=== PATIENT | male | born 1950 | race Caucasian/White ===

== ENCOUNTER 2018-01-28 13:14 | Observation (INO) ==
--- NOTE | 2018-01-28 13:42 | ED ---
HPI General Chief Complaint: Dizziness Stated Complaint: Dizziness Time Seen by Provider: 01/28/18 13:37 History of Present Illness HPI Narrative: Patient presents to the emergency department with dizziness. 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 States that the symptoms are consistent with prior TIA they had in the past. Patient drank grape soda, Coke, had a candy bar, drank water, 8 [place] fries, and had razo thinking that this may be secondary to low blood sugar he went to the [place] after this happened and his Accu-Chek was 55 peer states that he has been told he is a borderline diabetic. He denies headache, vomiting, chest pain, back pain, abdominal pain, but states that he had nausea and shortness of breath and he felt tingling over his entire body. Also advises that he felt unsteady on his feet like he was floating. Related Data Home Medications Medication Instructions Recorded Confirmed atorvastatin 80 mg PO DAILY 01/28/18 01/28/18 buspirone 5 mg PO TID 01/28/18 01/28/18 gabapentin 300 mg PO BID 01/28/18 01/28/18 lansoprazole 15 mg PO DAILY 01/28/18 01/28/18 loratadine 10 mg PO DAILY 01/28/18 01/28/18 mirtazapine 7.5 mg PO QID 01/28/18 01/28/18 mirtazapine 15 mg PO DAILY 01/28/18 01/28/18 sumatriptan succinate 6 mg SUB-Q Q6H PRN 01/28/18 01/28/18 tamsulosin 0.4 mg PO DAILY 01/28/18 01/28/18 Allergies Allergy/AdvReac Type Severity Reaction Status Date / Time ciprofloxacin Allergy Mild N/V Unverified 01/21/17 21:54 meperidine Allergy Mild N/V Unverified 01/21/17 21:54 Review of Systems ROS: all other systems reviewed are negative [facility] Medical History Medical History Depressed (Acute) GERD (gastroesophageal reflux disease) (Acute) Hyperlipemia (Acute) Hypertension (Acute) Migraine (Acute) Social History Social History Substance History: No History of Abuse Smoking Status: Unknown if ever smoked How Often Do You Have a Drink Containing Alcohol: Never Exam Narrative Exam Narrative: GENERAL: No acute distress. SKIN: Focused skin assessment warm/dry. HEAD: Atraumatic. Normocephalic. EYES: Pupils equal and round. No scleral icterus. No injection or drainage. ENT: No nasal bleeding or discharge. Mucous membranes pink and moist. NECK: Trachea midline. No JVD. CARDIOVASCULAR: Regular rate and rhythm. No murmur appreciated. RESPIRATORY: No accessory muscle use. Clear to auscultation. Breath sounds equal bilaterally. GASTROINTESTINAL: Abdomen soft, non-tender, nondistended. Hepatic and splenic margins not palpable. MUSCULOSKELETAL: No obvious deformities. No clubbing. No cyanosis. No edema. NEUROLOGICAL: Awake and alert. No obvious cranial nerve deficits. Motor grossly within normal limits. Normal speech. Normal finger to nose and heel to capps. PSYCHIATRIC: Appropriate mood and affect; insight and judgment normal. Course Initial Documented Vital Signs Temperature 98 F 01/28/18 13:39 Pulse Rate 85 01/28/18 13:39 Respiratory Rate 18 01/28/18 13:39 Blood Pressure 143/86 H 01/28/18 13:39 Pulse Oximetry 96 01/28/18 13:39 Last Documented Vital Signs Temperature 98 F 01/28/18 13:39 Pulse Rate 85 01/28/18 13:39 Respiratory Rate 18 01/28/18 13:39 Blood Pressure 143/86 H 01/28/18 13:39 Pulse Oximetry 96 01/28/18 13:39 Medical Decision Making MDM Narrative Medical decision making narrative: Patient presents to the emergency department with dizziness patient placed on cardiac care unit nurse, continuous pulse ox, and IV access obtained. EKG, chest x-ray, head CT, orthostats, and labs ordered. CXR-mildly compensated cardiomegaly Head CT: wnl cbc, coags-wnl u/a+ protein chem-wnl Wade admit for dizziness (TIA workup) Medical Screen Exam Complete: Yes Emergency Medical Condition: Yes Differential Diagnosis Differential Diagnosis: TIA, CVA, ICH, hypoglycemia, infection Lab Data Result diagrams: 01/28/18 13:48 01/28/18 13:48 Lab Results 01/28/18 01/28/18 01/28/18 Range/Units 13:48 13:48 13:48 WBC 7.9 (4.0-11.0) th/mm3 RBC 5.30 (4.50-5.90) mil/mm3 Hgb 15.6 (13.0-17.0) gm/dL Hct 46.9 (39.0-51.0) % MCV 88.4 (80.0-100.0) fL MCH 29.4 (27.0-34.0) pg MCHC 33.3 (32.0-36.0) % RDW 14.4 (11.6-17.2) % Plt Count 173 (150-450) th/mm3 MPV 9.0 (7.0-11.0) fL Neut % (Auto) 74.4 H (16.0-70.0) % Lymph % (Auto) 19.1 (9.0-44.0) % [place] % (Auto) 5.2 (0.0-8.0) % Eos % (Auto) 0.6 (0.0-4.0) % Baso % (Auto) 0.7 (0.0-2.0) % Neut # (Auto) 5.9 (1.8-7.7) th/mm3 Lymph # (Auto) 1.5 (1.0-4.8) th/mm3 [place] # (Auto) 0.4 (0.0-0.9) th/mm3 Eos # (Auto) 0.1 (0.0-0.4) th/mm3 Baso # (Auto) 0.1 (0.0-0.2) th/mm3 WBC Differential . Differential Comment Auto diff final PT 10.2 (9.8-11.6) sec INR 1.0 Ratio APTT 23.6 L (24.3-30.1) sec Sodium 140 (136-145) meq/L Potassium 3.7 (3.5-5.1) meq/L Chloride 107 (98-107) meq/L Carbon Dioxide 25.0 (21.0-32.0) meq/L Anion Gap 8 (5-15) meq/L BUN 17 (7-18) mg/dL Creatinine 1.26 (0.60-1.30) mg/dL Estimated GFR 57 L (>89) mL/min Random Glucose 91 (74-106) mg/dL Calcium 8.6 (8.5-10.1) mg/dL Magnesium 2.1 (1.5-2.5) mg/dL Total Bilirubin 0.5 (0.2-1.0) mg/dL AST 12 L (15-37) U/L ALT 24 (12-78) U/L Alkaline Phosphatase 59 (45-117) U/L Total Creatine Kinase 85 (39-308) U/L Troponin I Less than 0.02 L (0.02-0.05) ng/mL Total Protein 7.4 (6.4-8.2) g/dL Albumin 3.9 (3.4-5.0) g/dL Urine Color (Yellw/Straw) Urine Clarity (Clear) Urine pH (5.0-8.5) Ur Specific [place] (1.002-1.035) Urine Protein (Neg-Trace) mg/dL Urine Glucose (UA) (Negative) mg/dL Urine Ketones (Negative) mg/dL Urine Occult Blood (Negative) Urine Nitrate (Negative) Urine Bilirubin (Negative) Urine Urobilinogen (Less than 2) mg/dL Ur Leukocyte Esterase (Negative) Urine RBC (0-3) /hpf Urine WBC (0-5) /hpf Urine Mucus (Occasional) /lpf Micro UA Comment Ur Microscopic Review Urine Culture Comments 01/28/18 Range/Units 14:03 WBC (4.0-11.0) th/mm3 RBC (4.50-5.90) mil/mm3 Hgb (13.0-17.0) gm/dL Hct (39.0-51.0) % MCV (80.0-100.0) fL MCH (27.0-34.0) pg MCHC (32.0-36.0) % RDW (11.6-17.2) % Plt Count (150-450) th/mm3 MPV (7.0-11.0) fL Neut % (Auto) (16.0-70.0) % Lymph % (Auto) (9.0-44.0) % [place] % (Auto) (0.0-8.0) % Eos % (Auto) (0.0-4.0) % Baso % (Auto) (0.0-2.0) % Neut # (Auto) (1.8-7.7) th/mm3 Lymph # (Auto) (1.0-4.8) th/mm3 [place] # (Auto) (0.0-0.9) th/mm3 Eos # (Auto) (0.0-0.4) th/mm3 Baso # (Auto) (0.0-0.2) th/mm3 WBC Differential Differential Comment PT (9.8-11.6) sec INR Ratio APTT (24.3-30.1) sec Sodium (136-145) meq/L Potassium (3.5-5.1) meq/L Chloride (98-107) meq/L Carbon Dioxide (21.0-32.0) meq/L Anion Gap (5-15) meq/L BUN (7-18) mg/dL Creatinine (0.60-1.30) mg/dL Estimated GFR (>89) mL/min Random Glucose (74-106) mg/dL Calcium (8.5-10.1) mg/dL Magnesium (1.5-2.5) mg/dL Total Bilirubin (0.2-1.0) mg/dL AST (15-37) U/L ALT (12-78) U/L Alkaline Phosphatase (45-117) U/L Total Creatine Kinase (39-308) U/L Troponin I (0.02-0.05) ng/mL Total Protein (6.4-8.2) g/dL Albumin (3.4-5.0) g/dL Urine Color Yellow (Yellw/Straw) Urine Clarity Clear (Clear) Urine pH 5.0 (5.0-8.5) Ur Specific [place] 1.014 (1.002-1.035) Urine Protein 30 H (Neg-Trace) mg/dL Urine Glucose (UA) 50 (Negative) mg/dL Urine Ketones Negative (Negative) mg/dL Urine Occult Blood Negative (Negative) Urine Nitrate Negative (Negative) Urine Bilirubin Negative (Negative) Urine Urobilinogen Less than 2 (Less than 2) mg/dL Ur Leukocyte Esterase Negative (Negative) Urine RBC Less than 1 (0-3) /hpf Urine WBC 1 (0-5) /hpf Urine Mucus Few H (Occasional) /lpf Micro UA Comment Culture not ind Ur Microscopic Review Not Reportable Urine Culture Comments Culture not ind Imaging Data Radiologist's impression: Chest X-Ray 01/28/18 13:37 CONCLUSION: Mild compensated cardiomegaly Head CT 01/28/18 13:37 CONCLUSION: 1. Negative for acute process . ECG Data Attestation: I personally reviewed and interpreted this ECG as follows: (Rate approximately 70, left axis deviation, sinus rhythm, normal intervals, QTC 395, T-wave inversion in lead III and V1, slight YISEL in avL and I) Discharge Plan Discharge Disposition Patient Disposition: 30 Still Patient Discharge Condition Condition: Stable Discharge Details Diagnosis: Dizziness Physicians Team ED Provider: Jossie Greenfield Primary Care Provider: [facility] /Orders / Referrals /Forms Prescriptions: No Action buspirone 5 mg Tablet 5 mg PO TID RF: 0 atorvastatin 80 mg Tablet 80 mg PO DAILY RF: 0 sumatriptan succinate 6 mg/0.5 mL Cartridge 6 mg Sub-Q Q6H PRN (Reason: Migraine Headache) RF: 0 lansoprazole 15 mg Capsule,Delayed Release(Dr/Ec) 15 mg PO DAILY RF: 0 gabapentin 300 mg Capsule 300 mg PO BID RF: 0 mirtazapine 15 mg Tablet 7.5 mg PO QID RF: 0 mirtazapine 15 mg Tablet,Disintegrating 15 mg PO DAILY RF: 0 loratadine 10 mg Tablet 10 mg PO DAILY RF: 0 tamsulosin 0.4 mg PO DAILY RF: 0 Status ED Status: Admitted Observation Patient
--- NOTE | 2018-01-28 14:00 | XR ---
EXAM DATE: 01/28/2018 1:49 PM EDT AGE/SEX: 67 years / Male INDICATIONS: Chest pain and dizziness. CLINICAL DATA: This is the patient's initial encounter. Patient reports that signs and symptoms have been present for 1 day and indicates a pain score of 2/10. MEDICAL/SURGICAL HISTORY: None. . TURP. COMPARISON: No prior exams available for comparison. FINDINGS: The heart is minimally enlarged. The pulmonary vascular is normal. There is no infiltrate or failure. There is no pleural effusion. The portion of the bony skeleton visualized is unremarkable. CONCLUSION: Mild compensated cardiomegaly Electronically signed by: Rolando Matos MD 01/28/2018 1:59 PM EDT
[2018-01-28 14:27] LABS: Baso # (Auto) 0.1 th/mm3 (0.0-0.2); Baso % (Auto) 0.7 % (0.0-2.0); Eos # (Auto) 0.1 th/mm3 (0.0-0.4); Eos % (Auto) 0.6 % (0.0-4.0); Hematocrit 46.9 % (39.0-51.0); Hemoglobin 15.6 gm/dL (13.0-17.0); Lymph # (Auto) 1.5 th/mm3 (1.0-4.8); Lymph % (Auto) 19.1 % (9.0-44.0); Mean Corpuscular HGB Conc 33.3 % (32.0-36.0); Mean Corpuscular Hemoglobin 29.4 pg (27.0-34.0); Mean Corpuscular Volume 88.4 fL (80.0-100.0); Mono # (Auto) 0.4 th/mm3 (0.0-0.9); Mono % (Auto) 5.2 % (0.0-8.0); Neut # (Auto) 5.9 th/mm3 (1.8-7.7); Neut % (Auto) 74.4 % (16.0-70.0); Platelet Count 173 th/mm3 (150-450); Red Cell Distribution Width 14.4 % (11.6-17.2); White Blood Count 7.9 th/mm3 (4.0-11.0)
--- NOTE | 2018-01-28 14:31 | CT ---
EXAM DATE: 01/28/2018 2:27 PM EDT AGE/SEX: 67 years / Male INDICATIONS: Altered mental status, full body spasms, dizziness. CLINICAL DATA: This is the patient's initial encounter. Patient reports that signs and symptoms have been present for 1 day and indicates a pain score of 0/10. MEDICAL/SURGICAL HISTORY: None. None. RADIATION DOSE: 35.87 CTDI (mGy) COMPARISON: No prior exams available for comparison. TECHNIQUE: CT of the head without contrast. Using automated exposure control and adjustment of the mA and/or kV according to patient size, radiation dose was kept as low as reasonably achievable to ob tain optimal diagnostic quality images. DICOM format image data is available electronically for revi ew and comparison. FINDINGS: Cerebrum: The ventricles are normal for age. No evidence of midline shift, mass lesion, hemorrhage or acute infarction. No extraaxial fluid collections are seen. Posterior Fossa: The cerebellum and brainstem are intact. The 4th ventricle is midline. The cerebe llopontine angle is unremarkable. Extracranial: The visualized portion of the orbits is intact. Skull: The calvaria is intact. No evidence of skull fracture. CONCLUSION: 1. Negative for acute process . Electronically signed by: Rolando Matos MD 01/28/2018 2:29 PM EDT
[2018-01-28 14:32] LABS: Bilirubin,Urine Negative (Negative); Clarity,Urine Clear (Clear); Color,Urine Yellow (Yellw/Straw); Glucose,Urine (UA) 50 mg/dL (Negative); Leukocyte Esterase,Urine Negative (Negative); Mucus,Urine Few /lpf (Occasional); Nitrite,Urine Negative (Negative); Specific Gravity,Urine 1.014 (1.002-1.035)
[2018-01-28 14:40] LABS: Activated Partial Thrombo Time 23.6 sec (24.3-30.1); Prothrombin Time 10.2 sec (9.8-11.6)
[2018-01-28 14:54] LABS: Alanine Aminotransferase 24 U/L (12-78); Albumin 3.9 g/dL (3.4-5.0); Anion Gap 8 meq/L (5-15); Aspartate Aminotransferase 12 U/L (15-37); Blood Urea Nitrogen 17 mg/dL (7-18); Calcium 8.6 mg/dL (8.5-10.1); Chloride 107 meq/L (98-107); Glomerular Filtration Rate 57 mL/min (>89); Glucose,Random 91 mg/dL (74-106); Magnesium 2.1 mg/dL (1.5-2.5); Potassium 3.7 meq/L (3.5-5.1); Sodium 140 meq/L (136-145)
[2018-01-28 14:59] LABS: Alkaline Phosphatase 59 U/L (45-117); Total Protein 7.4 g/dL (6.4-8.2)
[2018-01-28 15:11] LABS: Creatine Kinase 85 U/L (39-308)
[2018-01-28] MEDS ORDERED: Mirtazapine 15 MG Tablet PO PRN (17:46)
[2018-01-28] MEDS ORDERED: Dextrose 50% in Water 50 ML Vial IV.PUSH PRN (18:00)
--- NOTE | 2018-01-28 18:16 | P.HP ---
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 Patient felt very very dizzy and felt that all "everything was extremely bright. [place] tingling of the entire body. Patient described sensation of like he was on the boat. He ate some chocolate cookies and candies. Called his who brought him to [place] where blood sugar was 55. Patient was sent here for further evaluation In the past he was told a borderline diabetic. Patient denies any fever chills nausea vomiting diarrhea melena or hematochezia patient states he has history of TIA years ago around 2013 where her whole body felt like tingling weak and disoriented. Workup then was negative. Patient denies any hearing loss, denies any ringing sensation or tinnitus in the ears. Patient denies any headaches. Patient does have history of migraine but states this is not his typical migraine attack. Review of Systems Patient denies any fever chills. She he wears glasses for reading. No nasal allergies recently. Denies any melena or hematochezia, denies any urinary incontinence, patient does have reflux symptoms controlled with medications. Patient also has chronic pain from the right knee pain And underwent several revision replacement on this knee. [facility] - History History Provided By: Patient - Medical History Medical History: Medical History (Last Updated 01/28/18 @ 13:44 by Hieu Newman Jr., RN) Depressed GERD (gastroesophageal reflux disease) Hyperlipemia Hypertension Migraine - Tobacco History Smoking Status: Unknown if ever smoked - Alcohol History How Often Do You Have a Drink Containing Alcohol: Never - Substance Use History Substance History: No History of Abuse - Immunization History Tetanus Immunization: Unsure Medications and Allergies Active Medications: Active Medications Aspirin (Ecotrin) 325 mg PO DAILY FAVIOLA Atorvastatin Calcium (Lipitor) 80 mg PO DAILY FAVIOLA Buspirone HCl (Buspar) 5 mg PO TID FAVIOLA Dextrose (D50w Vial) 50 ml IV.PUSH UNSCH PRN PRN Reason: PER HYPOGLYCEMIA PROTOCOL Gabapentin (Neurontin) 300 mg PO BID FAVIOLA Glucagon (Glucagon Inj) 1 mg OTHER PRN PRN PRN Reason: for Hypoglycemia Protocol Loratadine (Claritin) 10 mg PO DAILY FAVIOLA Mirtazapine (Remeron) 7.5 mg PO HS PRN PRN Reason: if patient request for it Non-Formulary Medication (Lansoprazole) 15 mg PO BID FAVIOLA Non-Formulary Medication (Tamsulosin) 0.4 mg PO DAILY FAVIOLA Allergies Allergy/AdvReac Type Severity Reaction Status Date / Time ciprofloxacin Allergy Mild N/V Verified 01/28/18 17:57 meperidine Allergy Mild N/V Verified 01/28/18 17:57 Home Medications Medication Instructions Recorded Confirmed Type atorvastatin 80 mg PO DAILY 01/28/18 01/28/18 History buspirone 5 mg PO TID 01/28/18 01/28/18 History gabapentin 300 mg PO BID 01/28/18 01/28/18 History lansoprazole 15 mg PO DAILY 01/28/18 01/28/18 History loratadine 10 mg PO DAILY 01/28/18 01/28/18 History mirtazapine 7.5 mg PO QID 01/28/18 01/28/18 History mirtazapine 15 mg PO DAILY 01/28/18 01/28/18 History sumatriptan succinate 6 mg SUB-Q Q6H PRN 01/28/18 01/28/18 History tamsulosin 0.4 mg PO DAILY 01/28/18 01/28/18 History Exam Vital signs: Vital Signs 01/28/18 13:39 01/28/18 13:45 Temperature 98 F Pulse Rate 85 74 Respiratory Rate 18 18 Blood Pressure 143/86 H 124/72 Pulse Oximetry 96 Intake & Output 01/27/18 01/28/18 01/28/18 18:59 06:59 18:59 Weight 85.729 kg Narrative: Patient awake alert oriented 3 not in any form of distress Anicteric sclerae pink palpebral conjunctivae neck was supple no nuchal rigidity no bruit chest lungs bilateral breath sounds equal no rales no wheezes heart regular rhythm no murmur abdomen is soft good bowel sounds no guarding or rigidity extremities multiple well-healed scars on the right knee no calf swelling or tenderness good peripheral pulses Neurologic exam ANO 3 clear speech cranial nerves intact motor 5/5 lower extremities grossly no sensory deficit gait slow but steady. Results - Labs CBC & Chem 7: 01/28/18 13:48 01/28/18 13:48 Labs: Laboratory Results - last 24 hr 01/28/18 01/28/18 01/28/18 13:48 13:48 13:48 WBC 7.9 RBC 5.30 Hgb 15.6 Hct 46.9 MCV 88.4 MCH 29.4 MCHC 33.3 RDW 14.4 Plt Count 173 MPV 9.0 Neut % (Auto) 74.4 H Lymph % (Auto) 19.1 [place] % (Auto) 5.2 Eos % (Auto) 0.6 Baso % (Auto) 0.7 Neut # (Auto) 5.9 Lymph # (Auto) 1.5 [place] # (Auto) 0.4 Eos # (Auto) 0.1 Baso # (Auto) 0.1 WBC Differential . Differential Comment Auto diff final PT 10.2 INR 1.0 APTT 23.6 L Sodium 140 Potassium 3.7 Chloride 107 Carbon Dioxide 25.0 Anion Gap 8 BUN 17 Creatinine 1.26 Estimated GFR 57 L Random Glucose 91 Calcium 8.6 Magnesium 2.1 Total Bilirubin 0.5 AST 12 L ALT 24 Alkaline Phosphatase 59 Total Creatine Kinase 85 Troponin I Less than 0.02 L Total Protein 7.4 Albumin 3.9 Urine Color Urine Clarity Urine pH Ur Specific [place] Urine Protein Urine Glucose (UA) Urine Ketones Urine Occult Blood Urine Nitrate Urine Bilirubin Urine Urobilinogen Ur Leukocyte Esterase Urine RBC Urine WBC Urine Mucus Micro UA Comment Ur Microscopic Review Urine Culture Comments 01/28/18 14:03 WBC RBC Hgb Hct MCV MCH MCHC RDW Plt Count MPV Neut % (Auto) Lymph % (Auto) [place] % (Auto) Eos % (Auto) Baso % (Auto) Neut # (Auto) Lymph # (Auto) [place] # (Auto) Eos # (Auto) Baso # (Auto) WBC Differential Differential Comment PT INR APTT Sodium Potassium Chloride Carbon Dioxide Anion Gap BUN Creatinine Estimated GFR Random Glucose Calcium Magnesium Total Bilirubin AST ALT Alkaline Phosphatase Total Creatine Kinase Troponin I Total Protein Albumin Urine Color Yellow Urine Clarity Clear Urine pH 5.0 Ur Specific [place] 1.014 Urine Protein 30 H Urine Glucose (UA) 50 Urine Ketones Negative Urine Occult Blood Negative Urine Nitrate Negative Urine Bilirubin Negative Urine Urobilinogen Less than 2 Ur Leukocyte Esterase Negative Urine RBC Less than 1 Urine WBC 1 Urine Mucus Few H Micro UA Comment Culture not ind Ur Microscopic Review Not Reportable Urine Culture Comments Culture not ind - Imaging Impressions Chest X-Ray 01/28/18 13:37 CONCLUSION: Mild compensated cardiomegaly Head CT 01/28/18 13:37 CONCLUSION: 1. Negative for acute process . Caprini VTE Risk Assessment Caprini VTE Risk Assessment: No/Low Risk (score <= 1) Caprini Risk Assessment Model: Point Value = 1 Point Value = 2 Point Value = 3 Point Value = 5 Age 41-60 Minor surgery BMI > 25 kg/m2 Swollen legs Varicose veins or History of unexplained or recurrent spontaneous Oral contraceptives or hormone replacement Sepsis (< 1 month) Serious lung disease, including pneumonia (< 1 month) Abnormal pulmonary function Acute myocardial infarction Congestive heart failure (< 1 month) History of inflammatory bowel disease Medical patient at bed rest Age 61-74 Arthroscopic surgery Major open surgery (> 45 min) Laparoscopic surgery (> 45 min) Malignancy Confined to bed (> 72 hours) Immobilizing plaster cast Central venous access Age >= 75 History of VTE Family history of VTE Factor V Leiden Prothrombin [id number] Lupus anticoagulant Anticardiolipin antibodies Elevated serum homocysteine Heparin-induced thrombocytopenia Other congenital or acquired thrombophilia Stroke (< 1 month) Elective arthroplasty Hip, pelvis, or leg fracture Acute spinal cord injury (< 1 month) Prophylaxis Regimen: Total Risk Factor Score Risk Level Prophylaxis Regimen 0-1 Low Early ambulation 2 Moderate Order ONE of the following: *Sequential Compression Device (SCD) *Heparin 5000 units SQ BID 3-4 Higher Order ONE of the following medications: *Heparin 5000 units SQ TID *Enoxaparin/Lovenox 40 mg SQ daily (WT < 150 kg, CrCl > 30 mL/min) *Enoxaparin/Lovenox 30 mg SQ daily (WT < 150 kg, CrCl > 10-29 mL/min) *Enoxaparin/Lovenox 30 mg SQ BID (WT < 150 kg, CrCl > 30 mL/min) AND/OR *Sequential Compression Device (SCD) 5 or more Highest Order ONE of the following medications: *Heparin 5000 units SQ TID (Preferred with Epidurals) *Enoxaparin/Lovenox 40 mg SQ daily (WT < 150 kg, CrCl > 30 mL/min) *Enoxaparin/Lovenox 30 mg SQ daily (WT < 150 kg, CrCl > 10-29 mL/min) *Enoxaparin/Lovenox 30 mg SQ BID (WT < 150 kg, CrCl > 30 mL/min) AND *Sequential Compression Device (SCD) Assessment and Plan - Plan 67-year-old male who presented to the ER complaining of dzziness at [facility] NS 55 Dizziness rule out TIA states of history of TIA in the past-2013 Possbile Hypoglycemia -history of "borderline diabetes" Patient with family history of diabetes. Patient states that about 1-1/2 years ago prior to TURP procedure he was told that he had protein and glucose in the urine and was told that he has borderline diabetes Neurologic exam is essentially unremarkable head CT is negative. 12 lead EKG shows normal sinus rhythm no acute ST-T wave changes no arrhythmia. We will check a carotid ultrasound, 2D echo. Start aspirin. Get a hemoglobin A1c. We will follow blood sugars 3 times daily at bedtime with no coverage and monitor for now. PT eval in a.m. also expressed concern about him being forgets, not recalling what we talked about earlier Will get B12 folate TSH level. Cognitive eval in a.m. History of PTSD. Continue meds History of GERD. Continue PPI History of migraine headaches. On as needed sumatriptan. History of hyperlipidemia. Continue on statins History of neuropathy,/chronic knee pain. Patient states multiple knee surgeries and replacement on his right knee however is very active still. Continue on as needed pain meds, Neurontin History of prostate condition status post TURP 1-1/2 years ago. Continue on Flomax. Teds and SCDs for DVT prophylaxis.Up and ambualte
[2018-01-28 19:00] LABS: Hemoglobin A1c 5.9 % (4.3-6.0)
--- NOTE | 2018-01-28 19:18 | US ---
EXAM DATE: 01/28/2018 7:15 PM EDT AGE/SEX: 67 years / Male INDICATIONS: Transient ischemic attack. CLINICAL DATA: This is the patient's initial encounter. Patient reports that signs and symptoms have been present for 1 day and indicates a pain score of 0/10. MEDICAL/SURGICAL HISTORY: . Depression. Gastroesophageal reflux disease. Hyperlipidemia. Hyp ertension. Migraine. . Transurethral resection of the prostate. Appendectomy. COMPARISON: No prior exams available for comparison. VELOCITY PARAMETERS: ICA/CCA Ratio: Right 0.6 , Left 0.7 ICA: Right 73 cm/sec, Left 69 cm/sec CCA: Right 123 cm/sec, Left 99 cm/sec ECA: Right 98 cm/sec, Left 51 cm/sec Vertebral: Right 31 cm/sec antegrade, Left 48 cm/sec antegrade FINDINGS: Right Carotid: No significant plaque is visualized.The waveforms are within normal limits. Left Carotid: No significant plaque is visualized. The waveforms are within normal limits. Other: None. CONCLUSION: 1. Right Internal Carotid Artery: Findings indicate <50% stenosis. 2. Left Internal Carotid Artery: Findings indicate <50% stenosis. Electronically signed by: Toño Angel MD 01/28/2018 7:17 PM EDT
[2018-01-28 20:08] LABS: Folate 8.3 ng/mL (3.1-17.5)
[2018-01-28] MEDS: Pantoprazole Sodium 20 MG DR Tablet PO SCH (21:30)
[2018-01-28] MEDS: Gabapentin 300 MG Capsule PO SCH (21:30)
[2018-01-29] MEDS ORDERED: Loratadine 10 MG Tablet PO SCH (09:00)
[2018-01-29] MEDS: Gabapentin 300 MG Capsule PO SCH (09:44)
[2018-01-29] MEDS: Pantoprazole Sodium 20 MG DR Tablet PO SCH (09:44)
--- NOTE | 2018-01-29 13:26 | ECG ---
Date Performed: 01/28/2018 Time Performed: 14:38:02 PTAGE: 67 years EKG: Sinus rhythm NORMAL ECG PREVIOUS TRACING : 11/16/2013 12.46 Since the previous tracing, no significant change noted DOCTOR: Raul Toney Interpretating Date/Time 01/29/2018 13:24:26
--- NOTE | 2018-01-29 14:52 | P.PN ---
Subjective Interval history: no complains up and ambulating independently with no unsteadiness or headaches, dizzines Physical Exam Vital signs: Vital Signs 01/28/18 19:41 01/29/18 00:53 01/29/18 06:45 Temperature Pulse Rate 81 75 64 Respiratory Rate 18 18 18 Blood Pressure 170/90 H 123/88 122/61 Pulse Oximetry 97 97 98 01/29/18 10:00 Temperature 97.9 F Pulse Rate 74 Respiratory Rate Blood Pressure 147/92 H Pulse Oximetry 100 Intake & Output 01/28/18 01/29/18 01/29/18 18:59 06:59 18:59 Weight 85.729 kg Narrative: awake and alert lungs clear anicteric regular rhythm abdomen soft, nontender extremiteis no edema CN intact gait steady Results - Labs CBC & Chem 7: 01/28/18 13:48 01/28/18 13:48 Laboratory Results - last 24 hr 01/28/18 01/28/18 01/28/18 13:48 13:48 13:48 Sodium 140 Potassium 3.7 Chloride 107 Carbon Dioxide 25.0 Anion Gap 8 BUN 17 Creatinine 1.26 Estimated GFR 57 L POC Glucose Random Glucose 91 Hemoglobin A1c 5.9 Calcium 8.6 Magnesium 2.1 Total Bilirubin 0.5 AST 12 L ALT 24 Alkaline Phosphatase 59 Total Creatine Kinase 85 Troponin I Less than 0.02 L Total Protein 7.4 Albumin 3.9 Vitamin B12 Folate TSH 0.849 01/28/18 01/28/18 01/29/18 13:48 18:17 08:27 Sodium Potassium Chloride Carbon Dioxide Anion Gap BUN Creatinine Estimated GFR POC Glucose 92 118 H Random Glucose Hemoglobin A1c Calcium Magnesium Total Bilirubin AST ALT Alkaline Phosphatase Total Creatine Kinase Troponin I Total Protein Albumin Vitamin B12 471 Folate 8.3 TSH - Imaging Impressions Carotid Doppler Study 01/28/18 00:00 CONCLUSION: 1. Right Internal Carotid Artery: Findings indicate <50% stenosis. 2. Left Internal Carotid Artery: Findings indicate <50% stenosis. Assessment and Plan - Plan 67-year-old male who presented to the ER complaining of dzziness at [facility] NS 55 Dizziness rule out TIA states of history of TIA in the past-2013 Possbile Hypoglycemia -history of "borderline diabetes" Patient with family history of diabetes. Patient states that about 1-1/2 years ago prior to TURP procedure he was told that he had protein and glucose in the urine and was told that he has borderline diabetes Neurologic exam is essentially unremarkable head CT is negative. 12 lead EKG shows normal sinus rhythm no acute ST-T wave changes no arrhythmia. We will check a carotid ultrasound, 2D echo.- normal Start aspirin. daily Get a hemoglobin A1c.- 5.0 We will follow blood sugars 3 times daily at bedtime with no coverage and monitor for now. also expressed concern about him being forgets, not recalling what we talked about earlier B12, TSH normal Cognitive eval - as OP History of PTSD. Continue meds History of GERD. Continue PPI History of migraine headaches. On as needed sumatriptan. History of hyperlipidemia. Continue on statins History of neuropathy,/chronic knee pain. Patient states multiple knee surgeries and replacement on his right knee however is very active still. Continue on as needed pain meds, Neurontin History of prostate condition status post TURP 1-1/2 years ago. Continue on Flomax. Teds and SCDs for DVT prophylaxis.Up and ambualte DC home today long discussion with him- monitor blood sugars at home - write for a glucometer
--- NOTE | 2018-01-29 17:08 | ECHRPT ---
Indication: CVA/TIA CONCLUSIONS Normal left ventricular size. Wall thickness is normal. The left ventricular systolic function is normal with an estimated ejection fraction in the range of 55-60%. No mitral valve regurgitation. Aortic valve sclerosis is present. No tricuspid regurgitation. Trivial pulmonary valve regurgitation. BP: / HR: Rhythm: Sinus MEASUREMENTS (Male / Female) Normal Values Technical Quality:Fair 2D ECHO LV Diastolic Diameter PLAX 5.0 cm 4.2 - 5.9 / 3.9 - 5.3 cm LV Systolic Diameter PLAX 3.6 cm IVS Diastolic Thickness 0.9 cm 0.6 - 1.0 / 0.6 - 0.9 cm LVPW Diastolic Thickness 1.0 cm 0.6 - 1.0 / 0.6 - 0.9 cm LV Relative Wall Thickness 0.4 RV Internal Dim ED PLAX 2.5 cm LVOT Diameter 1.9 cm LA Systolic Diameter LX 3.6 cm 3.0 - 4.0 / 2.7 - 3.8 cm M-MODE AV Cusp Separation MM 2.0 cm DOPPLER AV Peak Velocity 125.0 cm/s AV Peak Gradient 6.3 mmHg LVOT Peak Velocity 95.8 cm/s LVOT Peak Gradient 3.7 mmHg AV Area Cont Eq pk 2.2 cm Mitral E Point Velocity 45.9 cm/s Mitral A Point Velocity 50.8 cm/s Mitral E to A Ratio 0.9 LV E' Lateral Velocity 12.4 cm/s Mitral E to LV E' Lateral Ratio 3.7 LV E' Septal Velocity 7.5 cm/s Mitral E to LV E' Septal Ratio 6.1 PV Peak Velocity 141.0 cm/s PV Peak Gradient 8.0 mmHg FINDINGS LEFT VENTRICLE Normal left ventricular size. Wall thickness is normal. The left ventricular systolic function is normal with an estimated ejection fraction in the range of 55-60%. RIGHT VENTRICLE Normal right ventricular size and systolic function. LEFT ATRIUM The left atrial size is normal. RIGHT ATRIUM The right atrial size is normal. ATRIAL SEPTUM No atrial level shunt is demonstrated by color flow Doppler interrogation. AORTA The aortic root and proximal ascending aorta are normal in size on limited imaging. MITRAL VALVE No mitral valve regurgitation. AORTIC VALVE Aortic valve sclerosis is present. TRICUSPID VALVE No tricuspid regurgitation. PULMONARY VALVE Trivial pulmonary valve regurgitation. VESSELS The inferior vena cava is normal in size. PERICARDIUM No pericardial effusion. Zach Elizabeth MD, FACC (Electronically Signed) Final Date:29 January 2018 17:07
== END 2018-01-29 16:01 | disposition home or self-care (01) ==
LOC: NEPC 13:14 → NEDA 13:14 → NEDH 23:03
PROVIDERS: ADMIT Internal Medicine; ATTEND Internal Medicine